=== PATIENT | male | born 1960 | race Caucasian/White ===

== ENCOUNTER 2019-03-13 04:18 | Emergency (ER) | payer OTHER ==
[~2019-03-13] VITALS: Ht 180.3 cm; Wt 86.0 kg
[2019-03-13] MEDS ORDERED: AMLODIPINE5 MG PO (04:36)
[2019-03-13 05:46] LABS: URINE BILIRUBIN - DIPSTICK NEGATIVE (NEGATIVE); URINE BLOOD DIPSTICK TRACE-LYSED (NEGATIVE); URINE COLOR YELLOW; URINE GLUCOSE - DIPSTICK NEGATIVE (NEGATIVE); URINE KETONE TRACE mg/dL (NEGATIVE); URINE LEUK ESTERASE NEGATIVE (NEGATIVE); URINE NITRITE - DIPSTICK NEGATIVE (Negative); URINE PROTEIN - DIPSTICK 30 mg/dL (NEG-TRACE); URINE SPECIFIC GRAVITY 1.025; URINE UROBILINOGEN - DIPSTICK 0.2 E.U./dL (0.2)
[2019-03-13 05:47] LABS: HEMATOCRIT 42.2 % (39.0-50.0); HEMOGLOBIN 14.1 g/dl (14.0-18.0); IMMATURE GRANULOCYTES 0.7 % (0.0-5.0); MEAN CELL VOLUME 88.1 fL CALC (80.0-100.0); MEAN CORPUSCULAR HGB 29.4 pG CALC (26.0-32.0); MEAN CORPUSCULAR HGB CONC 33.4 g/L CALC (32.0-36.0); NEUT# 12.63 thou/uL (1.82-7.42); RED BLOOD COUNT 4.79 mill/uL (4.70-6.10); RED CELL DISTRI WIDTH 12.8 % (11.5-15.5)
[2019-03-13 05:52] LABS: BARBITURATES NEGATIVE (NEGATIVE); COCAINE NEGATIVE (NEGATIVE); METHADONE NEGATIVE (NEGATIVE); OXCYCODONE NEGATIVE (NEGATIVE); TETRAHYDROCANNABIONOL POSITIVE (NEGATIVE); TRICYLIC ANTIDEPRESSANTS NEGATIVE (NEGATIVE)
[2019-03-13 05:54] LABS: URINE HYALINE CAST FEW lpf (NONE-RARE); URINE MUCUS MANY hpf (NONE-FEW); URINE RBC 0-2 RBC/hpf (0-5); URINE SQUAMOUS EPITHELIAL CELL FEW EPI/hpf (0-FEW)
[2019-03-13 06:01] LABS: ALBUMIN 4.7 g/dL (3.2-5.0); ALKALINE PHOSPHATASE 90 u/l (38-126); ANION GAP 16 (6-22 (CALC)); BILIRUBIN, TOTAL 0.4 mg/dL (0.0-1.4); BUN 21 mg/dL (9-20); BUN/CREATININE RATIO 24 (12-20 (CALC)); CARBON DIOXIDE 22 mmol/l (22-30); CHLORIDE 106 mmol/l (95-108); CREATININE 0.9 mg/dL (0.7-1.3); GFR > 60 ML/MIN (>=60 (CALC)); GFR FOR AFR.AMER. > 60 ML/MIN (>=60 (CALC)); SGOT/AST 32 u/l (17-59); SODIUM 141 mmol/l (137-146); TOTAL PROTEIN 7.5 g/dL (6.3-8.2)
[2019-03-13 06:08] LABS: MYOGLOBIN 203 ng/mL (0 - 121)
[2019-03-13] MEDS ORDERED: DILANTIN100 MG PO (06:32)
[2019-03-13 08:30] VITALS: BP 140/77
== END 2019-03-13 08:30 | disposition home or self-care (01) | DRG 101 ==
LOC: ED 04:18
PROVIDERS: Family Medicine
DX: R56.9 Unspecified convulsions (principal); R73.9 Hyperglycemia, unspecified; R50.9 Fever, unspecified; R00.0 Tachycardia, unspecified

== ENCOUNTER 2021-04-14 13:22 | Emergency (ER) | payer OTHER ==
[~2021-04-14] VITALS: Ht 180.3 cm; Wt 78.0 kg
[~2021-04-14 13:22] MED LIST: AMLODIPINE5 MG PO; DILANTIN100 MG PO
[2021-04-14] MEDS ORDERED: ROBAXIN (13:52)
[2021-04-14] MEDS ORDERED: MIRTAZAPINE15 MG PO (13:52)
[2021-04-14] MEDS ORDERED: LISINOPRIL2.5 MG PO (13:53)
[2021-04-14] MEDS ORDERED: SIMVASTATIN5 MG PO (13:53)
[2021-04-14 14:08] LABS: HEMOGLOBIN 15.6 g/dl (14.0-18.0); IMMATURE GRANULOCYTES 0.9 % (0.0-5.0); MEAN CELL VOLUME 88.8 fL CALC (80.0-100.0); MEAN CORPUSCULAR HGB 29.5 pG CALC (26.0-32.0); MEAN CORPUSCULAR HGB CONC 33.2 g/dL CAL (32.0-36.0); NEUT# 12.72 thou/uL (1.82-7.42); RED BLOOD COUNT 5.29 mill/uL (4.70-6.10); RED CELL DISTRI WIDTH 12.5 % (11.5-15.5)
[2021-04-14 14:17] LABS: ALBUMIN 4.8 g/dL (3.2-5.0); ALKALINE PHOSPHATASE 75 u/l (38-126); ANION GAP 18 (6-22 (CALC)); BILIRUBIN, TOTAL 0.4 mg/dL (0.0-1.4); BUN 18 mg/dL (8-23); BUN/CREATININE RATIO 20 (12-20 (CALC)); CARBON DIOXIDE 18 mmol/l (22-30); CHLORIDE 105 mmol/l (95-108); CREATININE 0.9 mg/dL (0.7-1.3); GFR > 60 ML/MIN (>=60 (CALC)); GFR FOR AFR.AMER. > 60 ML/MIN (>=60 (CALC)); LIPASE 619 u/l (23-300); MAGNESIUM 2.1 mg/dL (1.6-2.3); POTASSIUM 4.2 mmol/l (3.5-5.1); SGOT/AST 41 u/l (19-48); SODIUM 137 mmol/l (137-146); TOTAL PROTEIN 8.1 g/dL (6.3-8.2)
[2021-04-14 14:22] LABS: ETHYL ALCOHOL < 10 mg/dl (0-30)
[2021-04-14 14:45] LABS: URINE BILIRUBIN - DIPSTICK NEGATIVE (NEGATIVE); URINE BLOOD DIPSTICK TRACE-LYSED (NEGATIVE); URINE COLOR YELLOW; URINE GLUCOSE - DIPSTICK 100 mg/dL (NEGATIVE); URINE KETONE TRACE mg/dL (NEGATIVE); URINE LEUK ESTERASE NEGATIVE (NEGATIVE); URINE PH 5.5 (4.5-8.0); URINE PROTEIN - DIPSTICK 100 mg/dL (NEG-TRACE); URINE SPECIFIC GRAVITY >=1.030; URINE UROBILINOGEN - DIPSTICK 0.2 E.U./dL (0.2)
[2021-04-14 14:46] LABS: TSH, 3RD GENERATION 2.77 uIU/mL (0.47 - 4.68)
[2021-04-14 14:48] LABS: URINE NITRITE - DIPSTICK NEGATIVE (Negative)
[2021-04-14 14:56] LABS: URINE RBC 0-2 RBC/hpf (0-5); URINE WBC 0-2 WBC/hpf (0-5)
[2021-04-14 18:54] VITALS: BP 157/82
== END 2021-04-14 18:55 | disposition home or self-care (01) | DRG 101 ==
LOC: ED 13:22
PROVIDERS: Emergency Medicine
DX: R56.9 Unspecified convulsions (principal); I10 Essential (primary) hypertension
CPT/HCPCS: A9579